=== PATIENT | male | born 1975 | race American Indian/Alaskan Native ===

== ENCOUNTER 2017-08-14 12:19 | Outpatient (CLI) | payer BC, MEDICARE ==
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
== END 2017-08-14 12:20 | disposition home or self-care (01) ==
LOC: CT 12:19
PROVIDERS: ATTEND Urology
DX: N31.9 Neuromuscular dysfunction of bladder, unspecified (principal); M41.86 Other forms of scoliosis, lumbar region; K56.41 Fecal impaction; S29.9XXA Unspecified injury of thorax, initial encounter; Z90.49 Acquired absence of other specified parts of digestive tract; X58.XXXA Exposure to other specified factors, initial encounter; Y93.89 Activity, other specified; Y92.89 Other specified places as the place of occurrence of the external cause; Y99.8 Other external cause status
CPT/HCPCS: 74176